=== PATIENT | male | born 1955 | race Hispanic/Latino ===

== ENCOUNTER 2017-09-07 06:49 | Emergency (ER) | payer BC ==
[2017-09-07 06:50] VITALS: PULSE 80; BMI 32.8
[2017-09-07 07:10] VITALS: RESP 18; TEMP 97.5
[2017-09-07] MEDS ORDERED: Sodium Chloride 0.9% 1,000 ML IV STA (07:15)
--- NOTE | 2017-09-07 07:17 | ED PDOC ---
Arrival/HPI - General Chief Complaint: Medical Clearance Time Seen by Provider: 09/07/17 07:10 Historian: Patient - History of Present Illness Narrative History of Present Illness (Text): 09/07/17 07:17 Patient is a 61 year old male whose past medical history includes diabetes, hyperlipidemia, and afib, who presents to the emergency department complaining of vomiting, diarrhea, and nausea, which started this morning. Patient reports that he was sleeping when his symptoms started, and experienced associated diaphoresis with his vomiting and diarrhea. He also experienced abdominal pain this morning, which has since resolved. Of note patient reports experiencing similar symptoms in the past while experiencing afib and low blood glucose levels. Patient denies fevers, chills, headache, dizziness, chest pain, shortness of breath, dyspnea on exertion, cough, back pain, neck pain, or any other complaint. Time/Duration: Prior to Arrival Symptom Onset: Sudden Activities at Onset: Sleeping Context: Home Past Medical History - Provider Review Nursing Documentation Reviewed: Yes - Infectious Disease Hx of Infectious Diseases: None - Tetanus Immunization Tetanus Immunization: Unknown - Cardiac Hx Atrial Fibrillation: Yes Hx Pacemaker: No - Pulmonary Hx Respiratory Disorders: No - Neurological Hx Neurological Disorder: No Hx Paralysis: No - HEENT Hx HEENT Disorder: No - Renal Hx Renal Disorder: No - Endocrine/Metabolic Hx Diabetes Mellitus Type 2: Yes - Hematological/Oncological Hx Blood Disorders: No Hx Blood Transfusions: No - Integumentary Hx Dermatological Disorder: No - Musculoskeletal/Rheumatological Hx Musculoskeletal Disorders: No - Gastrointestinal Hx Diverticulitis: Yes - Psychiatric Hx Depression: Yes Hx Emotional Abuse: No Hx Physical Abuse: No Hx Substance Use: No - Past Surgical History Past Surgical History: Unable to Obtain - Surgical History Hx Cardiac Catheterization: Yes (at [facility] neg results) Hx Inguinal Hernia Repair: Yes (UMBILICAL) - Anesthesia Hx Anesthesia Reactions: No Hx Malignant Hyperthermia: No - Suicidal Assessment Feels Threatened In Home Enviroment: No Family/Social History - Physician Review Nursing Documentation Reviewed: Yes Family/Social History: No Known Family HX Smoking Status: Current Some Days Smoker Hx Alcohol Use: No Hx Substance Use: No Hx Substance Use Treatment: No Allergies/Home Meds Allergies/Adverse Reactions: Allergies No Known Allergies Allergy (Verified 09/07/17 06:58) Home Medications: Home Meds Medication Instructions Recorded Confirmed Atorvastatin Calcium [Lipitor] 10 mg PO DAILY 10/11/11 09/07/17 Dabigatran [Pradaxa] 150 mg PO BID 10/11/11 09/07/17 Fenofibrate [Tricor] 145 mg PO DAILY 10/11/11 09/07/17 Esomeprazole Magnesium [Nexium] 40 mg PO DAILY 09/07/17 09/07/17 Glimepiride [Amaryl] 4 mg PO BID 09/07/17 09/07/17 LORazepam [Ativan] 0.5 mg PO DAILY 09/07/17 09/07/17 MetFORMIN [glucOPHAGE] 1,000 mg PO BID 09/07/17 09/07/17 Metoprolol Succinate [Toprol XL] 100 mg PO BID 09/07/17 09/07/17 Review of Systems - Physician Review All systems were reviewed & negative as marked: Yes - Review of Systems Constitutional: absent: Fevers Cardiovascular: absent: Chest Pain Physical Exam - Physical Exam Narrative Physical Exam (Text): 09/07/17 07:21 Constitutional: No acute distress. Head: Normocephalic. Atraumatic. Eyes: PERRL. ENT: Moist mucous membranes. Neck: Supple. Cardiovascular: Regular rate. Chest: No tenderness. Respiratory: Clear to auscultation bilaterally. GI: Soft. Nontender. Nondistended. Back: No CVA tenderness. Musculoskeletal: No tenderness or swelling of extremities. Skin: No rash. Neurologic: Alert, no focal deficit. Vital Signs Reviewed: Yes Vital Signs Temp Pulse Resp BP Pulse Ox 09/07/17 07:09 97.5 F L 85 18 107/46 L 98 Temperature: Afebrile Blood Pressure: Normal Pulse: Regular Respiratory Rate: Normal Appearance: Positive for: Well-Appearing Mental Status: Positive for: Alert and Oriented X 3 Medical Decision Making ED Course and Treatment: 09/07/17 07:16 Impression: Patient is a 61 year old male who complains of nausea, vomiting, and diarrhea with associated diaphoresis. Differential Diagnosis included but are not limited to: Gastroenteritis vs. Pancreatitis Plan: --EKG --labs --Zofran injection --IV fluids --urinalysis -- Reassess and disposition Prior Visits: Notes and results from previous visits were reviewed. Patient was last seen in the emergency department on 10/29/14 for nausea, vomiting, and diarrhea and was discharged. Progress Notes: 09/07/17 07:28 EKG shows afib at [address] elevations. Interpreted by me. 09/07/17 09:38 CT abdomen shows no acute findings, no kidney stone. PO challenged successfully. Will discharge, continue antiemetic, f/u PMD and Urology due to hematuria. Return to ED for worsening pain, fever, vomiting, dyspnea, lethargy. - Lab Interpretations Lab Results: 09/07/17 07:28 09/07/17 07:28 Lab Results 09/07/17 07:28: Sodium 140, Potassium 4.5, Chloride 101, Carbon Dioxide 26, Anion Gap 18, BUN 20, Creatinine 0.9, Est GFR ( Amer) > 60, Est GFR (Non- Af Amer) > 60, Random Glucose 151 H, Calcium 10.1, Total Bilirubin 0.7, AST 25, ALT 28, Alkaline Phosphatase 40, Total Protein 7.2, Albumin 4.2, Globulin 3.0, Albumin/Globulin Ratio 1.4, Lipase 35 09/07/17 07:28: WBC 10.5, RBC 5.13, Hgb 16.4, Hct 45.6, MCV 88.9, MCH 32.0, MCHC 36.0, RDW 13.5, Plt Count 243, MPV 9.4, Gran % 79.2 H, Lymph % (Auto) 9.5 L , [place] % (Auto) 9.3 H, Eos % (Auto) 1.9, Baso % (Auto) 0.1, Gran # 8.33 H, Lymph # (Auto) 1.0 L, [place] # (Auto) 1.0 H, Eos # (Auto) 0.2, Baso # (Auto) 0.01 09/07/17 07:15: Urine Color Yellow, Urine Appearance Clear, Urine pH 5.5, Ur Specific [place] 1.025, Urine Protein Trace H, Urine Glucose (UA) Negative, Urine Ketones Negative, Urine Blood Large H, Urine Nitrate Negative, Urine Bilirubin Negative, Urine Urobilinogen 0.2, Ur Leukocyte Esterase Negative, Urine RBC 25 - 30, Urine WBC 0 - 2, Ur Epithelial Cells None, Urine Bacteria Mod I have reviewed the lab results: Yes - RAD Interpretation Radiology Orders: 09/07/17 08:54 ABD & PELVIS W/O PO OR IV CONT [CT] Stat - EKG Interpretation Interpreted by ED Physician: Yes Type: 12 lead EKG - Medication Orders Current Medication Orders: Discontinued Medications Sodium Chloride (Sodium Chloride 0.9%) 1,000 mls @ 999 mls/hr IV .Q1H1M STA Stop: 09/07/17 08:15 Last Admin: 09/07/17 07:40 Dose: 999 mls/hr eMAR Start Stop Document 09/07/17 07:40 GMD (Rec: 09/07/17 07:40 GMD [id number]) Intravenous Solution Start Date 09/07/17 Start Time 07:40 End Date 09/07/17 End time 08:41 Total Infusion Time 61 Ondansetron HCl (Zofran Inj) 8 mg IVP STAT STA Stop: 09/07/17 07:16 Last Admin: 09/07/17 07:40 Dose: 8 mg IVP Administration Document 09/07/17 07:40 GMD (Rec: 09/07/17 07:40 GMD [id number]) Charges for Administration # of IVP Administrations 1 - Scribe Statement The provider has reviewed the documentation as recorded by the Scribe [place] Provider Scribe Attestation: All medical record entries made by the Scribe were at my direction and personally dictated by me. I have reviewed the chart and agree that the record accurately reflects my personal performance of the history, physical exam, medical decision making, and the department course for this patient. I have also personally directed, reviewed, and agree with the discharge instructions and disposition. Disposition/Present on Arrival - Present on Arrival Any Indicators Present on Arrival: No History of DVT/PE: No History of Uncontrolled Diabetes: No Urinary Catheter: No History of Decub. Ulcer: No History Surgical Site Infection Following: None - Disposition Have Diagnosis and Disposition been Completed?: Yes Diagnosis: Vomiting and diarrhea Disposition: HOME/ ROUTINE Disposition Time: 09:39 Patient Plan: Discharge Condition: STABLE Discharge Instructions (ExitCare): Viral Gastroenteritis Prescriptions: Ondansetron ODT [Zofran ODT] 4 mg PO Q8 #12 odt Referrals: Kannan Reeves MD [Primary Care Provider] - Follow up with primary Chichi Chapin MD [Staff Provider] - Follow up with primary Forms: [employer] (Angolan)
[2017-09-07 07:43] LABS: BASO # 0.01 K/mm3 (0.0-2.0); BASO % 0.1 % (0.0-3.0); EOS # 0.2 (0.0-0.7); EOS % 1.9 % (1.5-5.0); GRAN # 8.33 (1.4-6.5); GRAN % 79.2 % (50.0-68.0); HEMOGLOBIN 16.4 g/dL (14.0-18.0); LYMPH % 9.5 % (22.0-35.0); MEAN CELL VOLUME 88.9 fl (80.0-105.0); MEAN PLATELET VOLUME 9.4 fl (7.0-11.0); MONO % 9.3 % (1.0-6.0); RBC 5.13 10^6/uL (3.5-6.1); RED CELL DISTRIBUTION WIDTH 13.5 % (11.5-14.5); WHITE BLOOD COUNT 10.5 10^3/ul (4.5-11.0)
[2017-09-07 07:52] LABS: ALB/GLOB RATIO 1.4 (1.1-1.8); ALBUMIN 4.2 g/dL (3.0-4.8); ALT/SGPT 28 U/L (7-56); AST/SGOT 25 U/L (17-59); BLOOD UREA NITROGEN 20 mg/dL (7-21); CALCIUM 10.1 mg/dL (8.4-10.5); GFR AFRICAN-AMERICAN > 60; GFR NON-AFRICAN AMERICAN > 60; LIPASE 35 U/L (23-300)
[2017-09-07 08:46] LABS: PH,URINE 5.5 (4.7-8.0); URINE BILIRUBIN NEGATIVE (NEGATIVE); URINE BLOOD LARGE (NEGATIVE); URINE GLUCOSE (UA) NEGATIVE (NEGATIVE); URINE LEUKOCYTE ESTERASE NEGATIVE Leu/uL (NEGATIVE); URINE PROTEIN TRACE mg/dL (<30 mg/dL); URINE UROBILINOGEN 0.2 E.U./dL (<1 E.U./dL)
[2017-09-07 08:50] LABS: URINE APPEARANCE CLEAR (CLEAR); URINE COLOR YELLOW (YELLOW)
[2017-09-07 08:52] LABS: URINE RBC 25 - 30 /hpf (0-2); URINE WBC 0 - 2 /hpf (0-6)
[2017-09-07 08:53] LABS: URINE BACTERIA MOD (NEG)
--- NOTE | 2017-09-07 09:36 | CT ---
PROCEDURE: CT Abdomen and Pelvis without intravenous contrast HISTORY: hematuria, vomiting COMPARISON: None. TECHNIQUE: Without contrast.. Contrast dose: Radiation dose: Total exam DLP = 593 mGy-cm. This CT exam was performed using one or more of the following dose reduction techniques: Automated exposure control, adjustment of the mA and/or kV according to patient size, and/or use of iterative reconstruction technique. FINDINGS: LOWER THORAX: Unremarkable. LIVER: Unremarkable. No gross lesion or ductal dilatation. GALLBLADDER AND BILE DUCTS: Unremarkable. PANCREAS: Unremarkable. No gross lesion or ductal dilatation. SPLEEN: Unremarkable. ADRENALS: Unremarkable. No mass. KIDNEYS AND URETERS: Unremarkable. No hydronephrosis. No solid mass. VASCULATURE: Unremarkable. No aortic aneurysm. BOWEL: Unremarkable. No obstruction. No gross mural thickening. APPENDIX: Unremarkable. Normal appendix. PERITONEUM: Unremarkable. No free fluid. No free air. LYMPH NODES: Unremarkable. No enlarged lymph nodes. BLADDER: Unremarkable. REPRODUCTIVE: Unremarkable. BONES: No acute fracture. OTHER FINDINGS: There is a hernia mesh along the anterior abdominal wall in the midline. No evidence of recurrent hernia IMPRESSION: No acute intra-abdominal findings. No evidence of urolithiasis
[2017-09-07 09:52] VITALS: BP 110/72; PULSE 70; O2SAT 99
--- NOTE | 2017-09-07 16:49 | CARD ---
APPROVED REPORT EKG Measurement Heart [id number] <Conclusion> Atrial fibrillation ST & T wave abnormality, consider lateral ischemia or digitalis effect Abnormal ECG
== END 2017-09-07 09:51 | disposition home or self-care (01) ==
LOC: ED 06:49
DX: R19.7 Diarrhea, unspecified (principal); R11.2 Nausea with vomiting, unspecified; E11.9 Type 2 diabetes mellitus without complications; E78.5 Hyperlipidemia, unspecified; F17.200 Nicotine dependence, unspecified, uncomplicated; I48.91 Unspecified atrial fibrillation
CPT/HCPCS: 74176; 80053; 81001; 83690; 85025; 93005; 96361; 96374; 99283; J2405; J7030

== ENCOUNTER 2017-10-05 07:30 | Day surgery (SDC) | payer BC ==
[2017-09-27 08:58] VITALS: BMI 29.7
[2017-10-05] MEDS ORDERED: Propofol 10 mg/ml Inj (20 ML) ONE (09:07)
[2017-10-05] MEDS ORDERED: Sodium Chloride 0.9% 1,000 ML IV SCH (10:00)
[2017-10-05 11:23] VITALS: BP 119/72; PULSE 68; RESP 18; TEMP 97.6; O2SAT 98
== END 2017-10-05 11:46 | disposition home or self-care (01) ==
LOC: ENDO 07:30
PROVIDERS: ATTEND Specialist
DX: B37.81 Candidal esophagitis (principal); K21.9 Gastro-esophageal reflux disease without esophagitis; K31.9 Disease of stomach and duodenum, unspecified; E11.9 Type 2 diabetes mellitus without complications; I48.91 Unspecified atrial fibrillation; K29.50 Unspecified chronic gastritis without bleeding
CPT/HCPCS: 43239; 82948; 88104; 88305; 88342; J2704; J7030; J7040